=== PATIENT | female | born 1955 | race Caucasian/White ===

== ENCOUNTER 2021-05-27 08:50 | Day surgery (SDC) | payer BC ==
[~2021-05-27 08:50] MED LIST: EPINEPHrine 0.3 MG in Ophthalmic Irrigation Solution 500 ML IRR SCH; Fentanyl 100 MCG/2 ML VIAL ONE; Midazolam HCl 2 mg/2 ml Vial ONE
[2021-05-27] MEDS ORDERED: Phenylephrine 2.5% Ophth Soln 5 ML BOT ONE (09:17)
[2021-05-27] MEDS ORDERED: Cyclopentolate 1% Opth Drop 2 ML BOT ONE (09:17)
[2021-05-27] MEDS ORDERED: Maxitrol 0.1% Opth Oint 3.5 GM TUBE ONE (10:53)
[2021-05-27] MEDS ORDERED: Bupivacaine 0.75% 10 ML VIAL ONE (10:53)
[2021-05-27] MEDS ORDERED: CEFAZOLIN 1 GM VIAL ONE (10:53)
[2021-05-27] MEDS ORDERED: Triamcinolone 40 MG/ML VIAL ONE (10:53)
[2021-05-27] MEDS ORDERED: Lidocaine 4% PF 5 ML AMP ONE (10:53)
[2021-05-27] MEDS ORDERED: Lidocaine 1% PF 5 ML VIAL ONE (10:53)
== END 2021-05-27 12:28 | disposition home or self-care (01) ==
LOC: SDC 08:50
PROVIDERS: ATTEND Ophthalmology Retina Specialist
DX: H33.022 Retinal detachment with multiple breaks, left eye (principal)
CPT/HCPCS: 67025; J0171; J0690; J2250; J3010; J3301; J3490

== ENCOUNTER 2021-09-22 07:43 | Outpatient (CLI) | payer BC | END 2021-09-22 07:44 | disposition home or self-care (01) | LOC: LABBT 07:43 | PROVIDERS: ATTEND Ophthalmology Retina Specialist | DX: H35.372 Puckering of macula, left eye (principal); H54.7 Unspecified visual loss; Z20.822 Contact with and (suspected) exposure to COVID-19 | CPT/HCPCS: 87811 ==

== ENCOUNTER 2021-09-23 08:50 | Day surgery (SDC) | payer BC ==
[2021-09-22 10:24] VITALS: BMI 29.0
[~2021-09-23 08:50] MED LIST changes: -Fentanyl 100 MCG/2 ML VIAL ONE; +fentaNYL Citrate/PF 100 MCG/2 ML SYRINGE ONE
[2021-09-23] MEDS ORDERED: Phenylephrine 2.5% Ophth Soln 5 ML BOT ONE (09:10)
[2021-09-23] MEDS ORDERED: Cyclopentolate 1% Opth Drop 2 ML BOT ONE (09:10)
[2021-09-23] MEDS ORDERED: Triamcinolone 40 MG/ML VIAL ONE (09:35)
[2021-09-23] MEDS ORDERED: Maxitrol 0.1% Opth Oint 3.5 GM TUBE ONE (09:35)
[2021-09-23] MEDS ORDERED: Bupivacaine 0.75% 10 ML VIAL ONE (09:35)
[2021-09-23] MEDS ORDERED: PROPOFOL 200 MG/20 ML VIAL ONE (09:35)
[2021-09-23] MEDS ORDERED: Lidocaine 1% PF 5 ML VIAL ONE (09:35)
[2021-09-23] MEDS ORDERED: Lidocaine 4% PF 5 ML AMP ONE (09:35)
[2021-09-23] MEDS ORDERED: CEFAZOLIN 1 GM VIAL ONE (09:35)
[2021-09-23] MEDS ORDERED: Indocyanine Green 25 MG/10 ML VIAL ONE (09:35)
== END 2021-09-23 10:42 | disposition home or self-care (01) ==
LOC: SDC 08:50
PROVIDERS: ATTEND Ophthalmology Retina Specialist
PROC: 08NF3ZZ Release Left Retina, Percutaneous Approach (ICD-10-PCS; principal; 2021-09-23)
PROC: 08T53ZZ Resection of Left Vitreous, Percutaneous Approach (ICD-10-PCS; principal; 2021-09-23)
DX: H35.372 Puckering of macula, left eye (principal)
CPT/HCPCS: J0171; J0690; J2250; J2704; J3301; J3490